=== PATIENT | female | born 2000 | race Caucasian/White ===

== ENCOUNTER 2019-03-21 13:33 | Emergency (ER) | payer SELFPAY ==
[2019-03-21 14:35] LABS: #Basophils 0.1 thou/uL (0.0-0.2); #Eosinphils 0.1 thou/uL (0.0-0.7); #Monocytes 0.5 thou/uL (0.11-0.59); #Neutrophils 2.3 thou/uL (1.40-6.50); %Basophils 1.2 % (0.0-1.0); %Eosinophils 1.9 % (0.0-10.0); %Lymphocytes 40.4 % (28.0-48.0); %Monocytes 10.9 % (0.0-4.0); %Neutrophils 45.6 % (31.0-61.0); Hemoglobin 12.4 g/dL (12.0-16.0); Mean Corpuscular HGB CONC 34.9 g/dL (32.0-36.0); Mean Corpuscular Hemoglobin 31.7 pg (25.0-35.0); Mean Corpuscular Volume 90.9 fL (78.0-98.0); Mean Platelet Volume 8.2 fL (7.4-10.4); Platelet Count 204 thou/uL (130-400); RBC Distribution Width 11.7 % (11.5-14.5); Red Blood Cell (RBC) Count 3.92 mill/uL (4.00-5.20); White Blood Cell (WBC) Count 4.9 thou/uL (4.8-10.8)
[2019-03-21 15:49] LABS: ALT (SGPT) 18 U/L (8-55); AST (SGOT) 22 U/L (5-34); Albumin 4.3 g/dL (3.5-5.0); Alkaline Phosphatase 67 U/L (40-150); Anion Gap 10 mmol/L (10-20); BUN (Urea Nitrogen) 10 mg/dL (7.0-18.7); Bilirubin, Total 0.4 mg/dL (0.2-1.2); Calc. Creatinine Clearance 0 mL/min (70-130); Calcium 9.2 mg/dL (7.8-10.44); Carbon Dioxide 25 mmol/L (22-29); Chloride 109 mmol/L (98-107); Estimated GFR-MDRD Greater than 90; Globulin 2.7 g/dL (2.4-3.5); Glucose 90 mg/dL (70-105); Lipase 26 U/L (8-78); Potassium 3.7 mmol/L (3.5-5.1); Sodium 140 mmol/L (136-145)
[2019-03-21 15:49] LABS: Bilirubin Negative (Negative); Blood, Urine Negative (Negative); Clarity Clear (Clear); Glucose, Urine (Dipstick) Normal (Negative); Leukocyte Negative Leu/uL (Negative); Nitrite Negative (Negative); Protein, Urine (Dipstick) Negative (Neg-Trace); Urobilinogen Normal mg/dL (Less than 2)
[2019-03-21 18:22] LABS: Pregnancy Test - Urine (BHCG) Negative (Negative); Pregu Control Background? CLEAR/WHITE (CLR/WHITE); Pregu Control Bar Appear? YES (CONTROL BAR); Specific Gravity 1.022 (1.002-1.036)
[2019-03-24 00:08] LABS: Chlamydia by PCR Not Detected (NotDetected); GC by PCR Not Detected (NotDetected)
== END 2019-03-21 16:50 | disposition home or self-care (01) ==
LOC: ERS 13:33
DX: N76.0 Acute vaginitis (principal)
CPT/HCPCS: 36415; 80053; 81003; 81025; 83690; 85025; 86850; 86900; 86901; 87480; 87491; 87510; 87591; 87660; 99284

== ENCOUNTER 2019-11-09 20:22 | Day surgery (SDC) | payer OTHER, SELFPAY ==
[2019-11-09 21:04] VITALS: BP 130/73; TEMP 98.6; BMI 28.0
[2019-11-09] MEDS ORDERED: hydrALAZINE 20 MG/ML VIAL SLOW IVP PRN (21:31)
[2019-11-09 22:09] LABS: Bacteria/HPF None Seen HPF (None Seen); Bilirubin Negative (Negative); Blood, Urine Negative (Negative); Clarity Clear (Clear); Glucose, Urine (Dipstick) Normal (Negative); Leukocyte Negative Leu/uL (Negative); Nitrite Negative (Negative); Protein, Urine (Dipstick) Negative (Neg-Trace); RBC/HPF 0-3 HPF (0-3); Squamous Epithelial None Seen HPF (0-3); Urobilinogen Normal mg/dL (Less than 2); WBC/HPF 0-3 HPF (0-3)
--- NOTE | 2019-11-10 08:16 | PRG ---
DATE OF SERVICE: 11/09/2019 PRIMARY OB: Armaan Lee MD CHIEF COMPLAINT: Contractions and pelvic pain. HISTORY OF PRESENT ILLNESS: The patient is a 19-year-old G4, P0 female with an intrauterine at 36 weeks and 2 days, presenting to Labor and Delivery with complaints of pelvic pressure and sharp side pains. The patient came for evaluation as she has been concerned about this , has a history of three miscarriages. The patient denies any leakage of fluid or urinary urgency or frequency or vaginal bleeding. She denies fever, cough, headache, chest pain, shortness of breath, nausea, vomiting, diarrhea, constipation, hip problems, knee problems, muscle weakness, any new rashes, again vaginal bleeding, leakage of fluid, urinary urgency or frequency. PAST MEDICAL HISTORY: Migraines, asthma, and depression. PAST SURGICAL HISTORY: Negative. ALLERGIES: NO KNOWN DRUG ALLERGIES. MEDICATIONS: vitamins. SOCIAL HISTORY: Denies drug, alcohol, or tobacco use. OB LABS: Unavailable at time of dictation. REVIEW OF SYSTEMS: Per HPI. PHYSICAL EXAMINATION: VITAL SIGNS: Blood pressure is 130/73, heart rate of 86, saturating 97% on room air. GENERAL: She appears to be in no acute distress. She is alert and oriented, cooperative, and pleasant to interact with. HEAD: Normocephalic, atraumatic. LUNGS: Clear to auscultation bilaterally. HEART: Regular rate and rhythm. ABDOMEN: Gravid, soft, nontender. She does have some tenderness with deviation of the uterus to the left and right that is duplicating her chief complaint. EXTREMITIES: Nontender, nonedematous. : Cervix is fingertip, thick, and high per nursing staff. heart tracing shows a baseline in the 130s with moderate long-term variability, positive 15 x 15 accelerations, no decelerations, no contractions visible on the monitor. DIAGNOSTIC DATA: Urinalysis was negative for protein, nitrites, leukocyte esterase, white blood cells, squamous cells, and bacteria. VP3 was negative for Trichomonas, Gardnerella, and Toshia. ASSESSMENT AND PLAN: The patient is a 19-year-old G4, P0 female with an intrauterine at 36 weeks and 2 days, presenting with pelvic pains that are most consistent with ligament pain or musculoskeletal pain of . She has no evidence of labor at this time. No evidence of infection. The patient has a followup appointment with Dr. Lee in the near future, which we have encouraged that she keep. Fetus has a category 1 tracing, reactive NST. Job ID: [id number]
== END 2019-11-09 20:47 | disposition home or self-care (01) ==
LOC: L&D/OP 20:22
PROVIDERS: ATTEND Family Medicine
DX: O47.03 False labor before 37 completed weeks of gestation, third trimester (principal); O99.89 Other specified diseases and conditions complicating pregnancy, childbirth and the puerperium; R10.2 Pelvic and perineal pain; O99.513 Diseases of the respiratory system complicating pregnancy, third trimester; J45.909 Unspecified asthma, uncomplicated; O99.343 Other mental disorders complicating pregnancy, third trimester; F32.9 Major depressive disorder, single episode, unspecified; O09.293 Supervision of pregnancy with other poor reproductive or obstetric history, third trimester; Z3A.36 36 weeks gestation of pregnancy
CPT/HCPCS: 81001; 87480; 87510; 87660; 99284

== ENCOUNTER 2019-12-05 05:29 | Outpatient (CLI) | payer OTHER ==
[2019-12-05 16:33] LABS: SARS-CoV-2 MS2 Positive; SARS-CoV-2 N Gene Negative; SARS-CoV-2 S Gene Negative; SARS-CoV-2 orf1ab Negative
== END 2019-12-05 05:30 | disposition home or self-care (01) ==
LOC: ERS 05:29
PROVIDERS: ATTEND Family Medicine
DX: Z01.812 Encounter for preprocedural laboratory examination (principal); Z11.59 Encounter for screening for other viral diseases
CPT/HCPCS: 87635; U0003

== ENCOUNTER 2019-12-07 10:58 | Inpatient (IN) | payer OTHER ==
[2019-12-07] MEDS ORDERED: Bicitra 30 ML UDCUP PO SCH (15:02)
[2019-12-07] MEDS ORDERED: hydrALAZINE 20 MG/ML VIAL SLOW IVP PRN ×2 (15:02→21:41)
[2019-12-07] MEDS ORDERED: Ondansetron PF 4 MG/2 ML Vial IVP PRN ×3 (15:02→21:41)
[2019-12-07] MEDS ORDERED: Promethazine HCl 25 MG/ML VIAL IM PRN ×3 (15:02→21:41)
[2019-12-07 15:13] VITALS: BMI 29.5
[2019-12-07] MEDS ORDERED: CEFAZOLIN 2 GM in Premix Bag 1 BAG IVPB SCH (15:15)
[2019-12-07] MEDS: Lactated Ringer's 1,000 ML IV SCH ×2 (15:16→16:26)
[2019-12-07 15:25] LABS: Hemoglobin 11.3 g/dL (12.0-16.0); Mean Corpuscular HGB CONC 33.9 g/dL (32.0-36.0); Mean Corpuscular Hemoglobin 32.2 pg (27.0-31.0); Mean Corpuscular Volume 95.1 fL (78.0-98.0); Platelet Count 179 thou/uL (130-400); RBC Distribution Width 11.7 % (11.5-14.5); Red Blood Cell (RBC) Count 3.52 mill/uL (4.20-5.40); White Blood Cell (WBC) Count 10.7 thou/uL (4.8-10.8)
[2019-12-07 16:02] LABS: HBSAg Index 0.12 S/CO (0-0.99); Hep B Surf Ag Non-Reactive S/CO (NonReactive); Syphilis Antibody Nonreactive (Nonreactive); Syphilis Antibody Index 0.04 S/CO (<1.00 Non-Reactive)
[2019-12-07] MEDS ORDERED: MORPHINE 5 MG/10 ML PF VIAL ONE (18:36)
[2019-12-07] MEDS ORDERED: Ondansetron PF 4 MG/2 ML Vial ONE (18:37)
[2019-12-07] MEDS ORDERED: diphenhydrAMINE 50 MG/ML VIAL ONE (18:37)
[2019-12-07] MEDS ORDERED: Oxytocin 10 UNITS/ML VIAL ONE (18:37)
[2019-12-07] MEDS ORDERED: Ketorolac Tromethamine 30 MG/ML VIAL ONE (18:37)
[2019-12-07] MEDS ORDERED: PHENYLEPHRINE-NS 100 MCG/ML 10 ML SYRINGE ONE (18:37)
[2019-12-07] MEDS ORDERED: Dexamethasone 4 mg/ml Vial ONE (18:41)
[2019-12-07] MEDS ORDERED: Methylergonovine 0.2 MG/ML VIAL ONE ×2 (19:12)
[2019-12-07] MEDS ORDERED: Fentanyl 100 MCG/2 ML VIAL ONE (19:17)
[2019-12-07] MEDS ORDERED: diphenhydrAMINE 50 MG/ML VIAL IVP PRN (19:18)
[2019-12-07] MEDS ORDERED: L&D-Morphine 4 MG/ML VIAL SLOW IVP PRN (19:18)
[2019-12-07] MEDS ORDERED: HYDROmorphone 2 MG/ML VIAL SLOW IVP PRN (19:18)
[2019-12-07] MEDS ORDERED: Meperidine HCl/PF 25 MG/ML VIAL SLOW IVP PRN (19:18)
[2019-12-07] MEDS ORDERED: Naloxone HCl 0.4 mg/ml Vial IVP PRN ×2 (19:18)
[2019-12-07] MEDS ORDERED: Promethazine HCl 25 MG SUPP PR PRN (19:18)
[2019-12-07] MEDS ORDERED: Naloxone HCl 0.4 mg/ml Vial IV PRN (19:18)
[2019-12-07] MEDS ORDERED: Ondansetron HCl/PF 4 MG/2 ML Vial IVP PRN (19:18)
[2019-12-07] MEDS ORDERED: Communication Order-Pharmacy FS SCH (19:30)
[2019-12-07 19:59] LABS: Actual Bicarbonate (HCO3a) 21.8 mEq/L (22-28); Base Excess (BEa) -4.4 mEq/L (-2.0 to +3.0)
[2019-12-07 20:01] LABS: Actual Bicarbonate (HCO3v) 22 mEq/L (22-28); Base Excess -6.2 mEq/L (-2.0 to +3.0)
[2019-12-07 20:03] LABS: pH (Cord, venous) 7.21 (7.32-7.43)
[2019-12-07] MEDS ORDERED: Meperidine HCl/PF 25 MG/ML VIAL ONE (21:36)
[2019-12-07] MEDS ORDERED: Simethicone Chewable 80 MG TAB PO PRN (21:41)
[2019-12-07] MEDS ORDERED: Bisacodyl 10 MG SUPP PR PRN (21:41)
[2019-12-07] MEDS ORDERED: Meperidine HCl/PF 25 MG/ML VIAL IM PRN (21:41)
[2019-12-07] MEDS ORDERED: NS / Oxytocin 40 units/1000ml 1,000 ML IV SCH (21:41)
[2019-12-07] MEDS ORDERED: Lanolin Ointment 7 GM TUBE TOP PRN (21:41)
[2019-12-07] MEDS ORDERED: HYDROcodone/Acetaminophen 5/325 mg Tablet PO PRN (21:41)
[2019-12-07] MEDS ORDERED: diphenhydrAMINE 25 MG CAP PO PRN (21:41)
[2019-12-07] MEDS ORDERED: Ferrous Sulfate 325 MG TAB PO SCH (22:00)
[2019-12-07] MEDS ORDERED: Docusate Calcium (SURFAK) 240 MG CAP PO SCH (22:00)
[2019-12-08] MEDS ORDERED: Ketorolac Tromethamine 30 MG/ML VIAL IVP SCH (01:30)
[2019-12-08] MEDS: Ketorolac Tromethamine 30 MG/ML VIAL IVP SCH ×3 (01:32→12:28)
--- NOTE | 2019-12-08 05:30 | PDOC.OPDEL ---
OB Operative/Delivery Note Delivery Dr/Surgeon: Jesus Assist: Peng Pre-Delivery Diagnosis: scheduled section Procedure/Post Delivery Dx: primary low transverse CS Weeks gestation: 39 Anesthesia: spinal - Findings A Sex: male Weight: 7 lb 5.886 oz - 1 min: 8 - 5 min: 9 - Additional Findings/Plan Placenta delivered: manual removal findings: low transverse hysterotomy without extension Estimated blood loss: 535 Compilations/Other Findings: Date of Procedure: 12/07/2019 Resident Surgeon: Anju Khoury DO Attending Surgeon: Armaan Lee MD Procedure: Primary low transverse caesarean section Preoperative Diagnosis: 1. Term intrauterine 2. HSV-2 outbreak at 38 weeks, non-primary first episode 3. Hx SAB x3 Postoperative Diagnosis: 1. TIUP, delivered 2. HSV-2 outbreak at 38 weeks, non-primary first episode 3. Hx SAB x3 Anesthesia: spinal Indications: The patient is a 19 year old G4,P0030 female at 39.0 weeks gestation who presents for a primary scheduled . Procedure in Detail: After risks, benefits, and alternatives were explained to the patient, she gave informed consent. Pre-operative antibiotics included Cefazolin 2 gram IV. The patient was taken to the operating room and spinal anesthesia was initiated. She was placed in the supine position with a left tilt and prepped and draped in usual sterile fashion. A Pfannenstiel incision was made with a scalpel and carried down to the level of the fascia which was sharply nicked. The fascial cut was extended bilaterally with Davis sissors. The inferior and superior edges of the cut fascial edges were elevated with Ania clamps and the underlying rectus muscles were sharply and bluntly dissected free. The recti were divided digitally and retracted manually. The peritoneum was entered bluntly and retracted manually. Bladder blade was placed. A low transverse score was made with the scalpel and the uterus was entered in the midline with the scalpel. Allis clamp was used for AROM. Clear fluid was seen. The hysterotomy was extended manually. The infant was noted to be vertex and was delivered using vacuum assistance with one pop off. Vacuum to max pressures of 50mm Hg for delivery. Gentle traction with flexion of head through hysterotomy site. Of note, bandage scissors were used to extend the rectus muscles laterally to create more room for delivery. Mouth and nares were bulb suctioned. Cord clamped and cut and grossly normal male infant was handed to waiting nurse. Cord blood was obtained. Placenta was manually extracted, found to be intact with 3 vessel cord and discarded. The uterus was externalized and the endometrium was curetted with a dry lap. The bladder blade was replaced and the uterus was closed with a running locking #1 Monocryl suture followed by a single figure of eight stitch on left lateral aspect of hysterotomy for hemostasis. Following this hemostasis was noted. The abdomen was irrigated with saline and suctioned free of clots. Seprafilm was placed. The uterus was internalized and the hysterotomy was again noted to be hemostatic. The peritoneum was closed using 2-0 vicryl in running, non- locking fashion. The rectus muscles were examined and bleeders were cauterized. The left rectus muscles did get repaired for hemostasis. The fascia was closed with a running non-locking 0-PDS suture. The subcutaneous tissue was irrigated and bleeders were cauterized. The subcutaneous tissue was approximated using 2-0 plain gut in three separate interrupted sutures. The skin was approximated with dipesh and a pressure dressing was placed. All counts were correct. The patient tolerated the procedure well and was taken to the recovery room in stable condition. Estimated Blood Loss: 535 mL Complications: None Specimens: Cord blood sent to lab for blood type Findings: Grossly normal male/female with apgars of 8 and 9. Grossly normal placenta with 3 vessel cord discarded. Drains: Yates to gravity draining clear urine Post delivery plan: routine recovery
[2019-12-08 06:51] LABS: Mean Corpuscular HGB CONC 34.2 g/dL (32.0-36.0); Mean Corpuscular Hemoglobin 32.5 pg (27.0-31.0); Mean Corpuscular Volume 95.1 fL (78.0-98.0); Mean Platelet Volume 9.5 fL (7.4-10.4); Platelet Count 161 thou/uL (130-400); RBC Distribution Width 11.5 % (11.5-14.5); Red Blood Cell (RBC) Count 3.09 mill/uL (4.20-5.40); White Blood Cell (WBC) Count 16.1 thou/uL (4.8-10.8)
[2019-12-08] MEDS: Ferrous Sulfate 325 MG TAB PO SCH ×2 (07:26→21:11)
[2019-12-08] MEDS ORDERED: Adacel (T-DAP) 0.5 ML SYRINGE IM ONE (09:00)
[2019-12-08] MEDS: Docusate Calcium (SURFAK) 240 MG CAP PO SCH ×2 (09:07→22:22)
[2019-12-08] MEDS: Prenatal Vitamin 1 TAB PO SCH (09:07)
[2019-12-08] MEDS ORDERED: Sodium Chloride 0.9% 10 ML ONE (12:25)
[2019-12-08] MEDS: HYDROcodone/Acetaminophen 5/325 mg Tablet PO PRN (19:15)
[2019-12-08] MEDS: Ibuprofen 800 MG TAB PO SCH (22:22)
[2019-12-09] MEDS: Ibuprofen 800 MG TAB PO SCH ×3 (05:25→21:17)
[2019-12-09] MEDS ORDERED: Ibuprofen 800 MG TAB PO SCH (06:00)
[2019-12-09] MEDS: Prenatal Vitamin 1 TAB PO SCH (08:50)
[2019-12-09] MEDS: HYDROcodone/Acetaminophen 5/325 mg Tablet PO PRN ×2 (08:50→17:55)
[2019-12-09] MEDS: Docusate Calcium (SURFAK) 240 MG CAP PO SCH ×2 (08:51→21:16)
[2019-12-09] MEDS: Ferrous Sulfate 325 MG TAB PO SCH ×2 (08:52→18:59)
[2019-12-10] MEDS: Ibuprofen 800 MG TAB PO SCH (05:14)
[2019-12-10] MEDS: Prenatal Vitamin 1 TAB PO SCH (08:23)
[2019-12-10] MEDS: Ferrous Sulfate 325 MG TAB PO SCH (08:24)
[2019-12-10] MEDS: Docusate Calcium (SURFAK) 240 MG CAP PO SCH (08:24)
[2019-12-10 09:34] VITALS: BP 115/59; TEMP 98.3
== END 2019-12-10 10:25 | disposition home or self-care (01) | DRG 787 ==
LOC: L&D-LIB 14:20 → 3SE 22:53
PROVIDERS: ADMIT Family Medicine; ATTEND Family Medicine
PROC: 10D00Z1 Extraction of Products of Conception, Low, Open Approach (ICD-10-PCS; principal; 2019-12-07)
DX: O34.211 Maternal care for low transverse scar from previous cesarean delivery (principal); O98.52 Other viral diseases complicating childbirth; B00.1 Herpesviral vesicular dermatitis; Z3A.38 38 weeks gestation of pregnancy; Z37.0 Single live birth
CPT/HCPCS: 36415; 51702; 82805; 85027; 86780; 86850; 86900; 86901; 87340; J0690; J1100; J1200; J1885; J2175; J2210; J2274; J2405; J2590; J3010; Q0163